=== PATIENT | male | born 2000 | race Two or more races ===

== ENCOUNTER 2022-08-06 15:14 | Emergency (ER) | payer OTHER ==
[~2022-08-06] VITALS: Ht 190.5 cm; Wt 90.7 kg
== END 2022-08-06 19:12 | disposition home or self-care (01) ==
LOC: ER 15:14
DX: S61.221A Laceration with foreign body of left index finger without damage to nail, initial encounter (principal); W26.8XXA Contact with other sharp object(s), not elsewhere classified, initial encounter; Y93.9 Activity, unspecified; Y92.9 Unspecified place or not applicable; Y99.9 Unspecified external cause status; Z91.013 Allergy to seafood